=== PATIENT | male | born 1960 | race Two or more races ===

== ENCOUNTER 2025-07-09 07:48 | Outpatient (CLI) | payer MEDICAID ==
[2025-07-09 08:57] LABS: Hematocrit 45.8 % (41.0-53.0); Hemoglobin 15.6 g/dL (13.5-17.5); Mean Corpuscular Hemoglobin 33.3 pg (28.0-32.0); Mean Corpuscular Volume 97.7 fL (80.0-100.0); Nucleated Red Blood Cells % 0.1 %
[2025-07-09 09:14] LABS: Urine Protein, UAD Negative (Negative)
[2025-07-09 09:37] LABS: Iron 98.0 ug/dL (65-175)
[2025-07-09 09:40] LABS: Total Iron Binding Capacity 279.0 ug/dL (250-425)
[2025-07-09 09:50] LABS: Alanine Aminotransferase 43 U/L (7-40); Albumin 4.4 g/dL (3.2-4.8); Alkaline Phosphatase 86 U/L (46-116); Anion Gap 9 (5-15); BUN/Creatinine Ratio 11.2 (10.0-20.0); Blood Urea Nitrogen 10 mg/dL (9-23); Calcium 9.2 mg/dL (8.7-10.4); Carbon Dioxide 26 mmol/L (20-31); Chloride 106 mmol/L (98-107); Glucose 84 mg/dL (74-106); Magnesium 2.1 mg/dL (1.6-2.6); Potassium 3.7 mmol/L (3.5-5.1); Sodium 141 mmol/L (136-145); Total Protein 6.7 g/dL (5.7-8.2); Triglycerides 82 mg/dL (< 150)
[2025-07-09 09:51] LABS: Bilirubin, Total 0.4 mg/dL (0.2-1.0)
[2025-07-09 09:59] LABS: Cholesterol 255 mg/dL (< 200); HDL Cholesterol 66 mg/dL (40-59)
[2025-07-09 12:00] LABS: Uric Acid 6.8 mg/dL (3.7-9.2)
[2025-07-09 14:15] LABS: Prostate Specific Antigen 1.19 ng/mL (0.0-4.0)
[2025-07-09 14:19] LABS: Free T4 (Free Thyroxine) 1.31 ng/dL (0.89-1.76)
[2025-07-09 14:20] LABS: Free T3 2.55 pg/mL (2.3-4.2)
== END 2025-07-09 17:00 | disposition home or self-care (01) ==
LOC: LAB 07:48
PROVIDERS: ATTEND Family Medicine
DX: Z12.11 Encounter for screening for malignant neoplasm of colon (principal); D23.5 Other benign neoplasm of skin of trunk; B35.1 Tinea unguium; Z00.00 Encounter for general adult medical examination without abnormal findings
CPT/HCPCS: 36415; 80053; 80061; 81001; 82270; 82306; 82607; 83036; 83540; 83550; 83735; 84153; 84403; 84439; 84443; 84480; 84481; 84550; 85025; 87086